=== PATIENT | male | born 1990 | race Two or more races ===

== ENCOUNTER 2023-02-09 15:39 | Emergency (ER) | payer OTHER ==
[2023-02-09] MEDS: Lidocaine 1% 5 ML VIAL ONE (16:30)
[2023-02-09] MEDS: Bacitracin/Neomycin/Polymyxin B Oint 0.9 GM U/D Packet ONE (16:45)
[2023-02-09] MEDS: Take Home: Cephalexin 500 MG Cap, 6 Cap Pack PO SCH (16:51)
[2023-02-09] MEDS: Diphtheria,Pertussis(Acell),Tetanus Vaccine 0.5 ML Syringe ONE (16:52)
== END 2023-02-09 17:15 | disposition home or self-care (01) ==
LOC: LL.ED 15:39
DX: S61.011A Laceration without foreign body of right thumb without damage to nail, initial encounter (principal); Z23 Encounter for immunization; W20.8XXA Other cause of strike by thrown, projected or falling object, initial encounter
CPT/HCPCS: 12002; 90715; 99282; 99283; A9270-GY; J3490